=== PATIENT | female | born 1995 | race Hispanic/Latino ===

== ENCOUNTER 2019-12-19 18:00 | Emergency (ER) | payer SELFPAY | END 2019-12-19 20:32 | disposition home or self-care (01) | LOC: ERS 18:00 | DX: S00.33XA Contusion of nose, initial encounter (principal); I10 Essential (primary) hypertension; F17.210 Nicotine dependence, cigarettes, uncomplicated; W21.89XA Striking against or struck by other sports equipment, initial encounter; Y93.53 Activity, golf | CPT/HCPCS: 99283 ==